=== PATIENT | male | born 1975 | race Hispanic/Latino ===

== ENCOUNTER 2021-02-06 03:33 | Emergency (ER) | payer SELFPAY ==
[~2021-02-06] VITALS: Ht 177.8 cm; Wt 108.9 kg
[2021-02-06] MEDS ORDERED: MORPHINE SULFATE INJ 4 MG/ML INJ 1ML ONE (04:04)
[2021-02-06] MEDS ORDERED: ONDANSETRON HCL INJ 2MG/ML 2ML 2 MG/ML VIAL ONE ×2 (04:04→04:05)
[2021-02-06] MEDS ORDERED: SODIUM CHLORIDE 0.9% 1000ML 1,000 ML ONE (04:04)
[2021-02-06] MEDS ORDERED: PROMETHAZINE HCL (IM) 25 MG/ML VIAL IM ONE (04:30)
[2021-02-06] MEDS ORDERED: FLOMAX0.4 MG PO (04:45)
[2021-02-06] MEDS ORDERED: KETOROLAC TROME10 MG PO (04:45)
[2021-02-06] MEDS ORDERED: ONDANSETRON ODT4 MG PO (04:45)
[2021-02-06] MEDS ORDERED: KETOROLAC TROMETHAMINE 30 MG/ML VIAL ONE (04:48)
[2021-02-06] MEDS ORDERED: SODIUM CHLORIDE 0.9% 1000ML 1,000 ML IV ONE (06:15)
[2021-02-06] MEDS ORDERED: KETOROLAC TROMETHAMINE 30 MG/ML VIAL IV STA (06:15)
[2021-02-06] MEDS ORDERED: PROMETHAZINE 25MG/ NS 50ML (IV) IV ONE (06:15)
[2021-02-06] MEDS ORDERED: ONDANSETRON HCL INJ 2MG/ML 2ML 2 MG/ML VIAL IV STA (06:15)
[2021-02-06] MEDS ORDERED: MORPHINE SULFATE INJ 4 MG/ML INJ 1ML IV STA (06:22)
== END 2021-02-06 05:27 | disposition home or self-care (01) ==
LOC: FSED 04:03
DX: R10.11 Right upper quadrant pain (principal); N13.2 Hydronephrosis with renal and ureteral calculous obstruction; F17.210 Nicotine dependence, cigarettes, uncomplicated
CPT/HCPCS: 74176; 80048; 81003; 85025; 99284; J1885; J2270; J2405; J2550; J7030

== ENCOUNTER 2025-01-20 00:22 | Emergency (ER) | payer BC ==
[~2025-01-20] VITALS: Ht 177.8 cm; Wt 114.3 kg
[~2025-01-20 00:22] MED LIST: FLOMAX0.4 MG PO; KETOROLAC TROME10 MG PO; ONDANSETRON ODT4 MG PO
[2025-01-20] MEDS: ASPIRIN 81 MG CHEW TAB PO ONE (01:18)
[2025-01-20] MEDS: FAMOTIDINE 20 MG/2 ML VIAL IV STA (01:18)
[2025-01-20 01:19] VITALS: BP 163/101
[2025-01-20] MEDS: NITROGLYCERIN 0.4 MG SUBL SL ONE (01:19)
[2025-01-20] MEDS: ONDANSETRON HCL INJ 2MG/ML 2ML 2 MG/ML VIAL IV STA (01:27)
[2025-01-20] MEDS ORDERED: IOPAMIDOL 370 MG/ML 100 ML INFUS..BTL INJ ONE (01:31)
[2025-01-20] MEDS ORDERED: ONDANSETRON ODT4 MG PO (08:12)
[2025-01-20 08:29] VITALS: PULSE 65; RESP 18; TEMP 98.3; O2SAT 99
== END 2025-01-20 08:29 | disposition home or self-care (01) ==
LOC: FSED 00:26
DX: R06.02 Shortness of breath (principal); R07.89 Other chest pain; K80.20 Calculus of gallbladder without cholecystitis without obstruction; R11.2 Nausea with vomiting, unspecified; K76.0 Fatty (change of) liver, not elsewhere classified; Z82.49 Family history of ischemic heart disease and other diseases of the circulatory system; F17.210 Nicotine dependence, cigarettes, uncomplicated
CPT/HCPCS: 71046; 74177; 76705; 80053; 84484; 85025; 85379; 96374; 96375; 99284; J1308; J2405; Q9967